=== PATIENT | male | born 1955 | race African-American/Black ===

== ENCOUNTER 2019-02-27 10:48 | Inpatient (IN) | payer OTHER ==
[2019-02-27 12:03] VITALS: BMI 19.8
--- NOTE | 2019-02-27 13:13 | HP ---
COWS - Scale Resting Pulse: 2= [place] 101-120 Sweatin= Chills/Flushing (chills) Restless Observation: 1= Difficult to Sit Still Pupil Size: 0= Normal to Room Light (miosis) Bone or Joint Aches: 1= Mild Discomfort Runny Nose/ Eye Tearin= Runny Nose/Eyes GI Upset > 30mins: 3= Vomiting/Diarrhea (more nausea & vomiting, some diarrhea) Tremor Observation: 2= Slight Tremor Visible Yawning Observation: 0= None Anxiety or Irritability: 1=Feels Anxious/Irritable Goose Flesh Skin: 3=Piloerection COWS Score: 16 CIWA Score - Admission Criteria OASAS Guidelines: Admission for Medically Managed Detox: Requires at least one of the followin. CIWA greater than 12 2. Seizures within the past 24 hours 3. Delirium tremens within the past 24 hours 4. Hallucinations within the past 24 hours 5. Acute intervention needed for co occurring medical disorder 6. Acute intervention needed for co occurring psychiatric disorder 7. Severe withdrawal that cannot be handled at a lower level of care (continued vomiting, continued diarrhea, abnormal vital signs) requiring intravenous medication and/or fluids 8. 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: Yes: Peripheral Neuropathy Cardiovascular: Yes: HTN Hepatobiliary: Yes: Hepatitis C - Past Surgical History Past Surgical History: Yes: Colonoscopy, Upper Endoscopy - Smoking History Smoking history: Current every day smoker Have you smoked in the past 12 months: Yes Aproximately how many cigarettes per day: 6 - Alcohol/Substance Use Hx Alcohol Use: No History of Substance Use: reports: Cocaine, Heroin, Marijuana - Social History Usual Living Arrangement: Yes: Alone Admission [facility] Chief Complaint: heroin withdrawal Allergies/Adverse Reactions: Allergies Allergy/AdvReac Type Severity Reaction Status Date / Time No Known Allergies Allergy Verified 02/27/19 11:51 History of Present Illness: 63 y.o. M hepatitic C (being treated currently- on zepetir- started treatment early january by Dr. Fried at [facility]) HTN, peripheral neuropathy. Presenting for detox from heroin. Wants to get clean. Would like to consider rehab or outpatient program. Pt is very hypertensive today, unsure if he took his medications yesterday or today. At baseline patient ambulates with a walker d/t RLE pain with ambulation. Heroin: -Overdosed on heroin this morning- thinks it was cut with fentanyl since he took the same amount he normally does (1 bag). Was found by his neighbor, was brought to [facility]. S/p narcan administration by EMS. -Uses 3-4x per week. Uses 1 bag ~$10. Has overdosed in the past, this is the 3rd overdose within 30 days. Sniffs, used to inject in the s. Started using heroin 1968. Longest sober period 3 years while incarcerated([id number]). Marijuana: Uses every now and then. Last used a couple of days ago. Cocaine: Uses seldomly. Snorts. Used to inject many years ago. Cigarettes: Daily, 5-7 cigarettes every day for the past 50 years. PSH: None Social hx: apartment, lives alone. 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 All: none Meds: zepetir, amlodipine, asa 81mg, hydralazine, nifedipine Patient left his hep C medications at home we do not have this medication available at this facility. Patient is aware of the risks of not taking this medication while in detox. He has an appointment with his tram operator on Tuesday. Exam Limitations: No Limitations - Ebola screening Have you traveled outside of the country in the last 21 days: No Have you had contact with anyone from an Ebola affected area: No Do you have a fever: No - Review of Systems Constitutional: Chills, Night Sweats EENT: reports: No Symptoms Reported Respiratory: reports: No Symptoms reported Cardiac: reports: No Symptoms Reported GI: reports: Nausea, Vomiting, Abdominal cramping : reports: No Symptoms Reported Musculoskeletal: reports: No Symptoms Reported Integumentary: reports: Sweating Neuro: reports: Paresthesia (Right lower extremity, chronic) Endocrine: reports: No Symptoms Reported Hematology: reports: No Symptoms Reported Psychiatric: reports: Mood/Affect Appropiate, Orientated x3 Patient History - Smoking Cessation Smoking history: Current every day smoker Have you smoked in the past 12 months: Yes Aproximately how many cigarettes per day: 6 Initiated information on smoking cessation: Yes 'Breaking Loose' booklet given: 02/27/19 - Substances abused Heroin Substance route: Inhalation Frequency: 3-6 times per week Amount used: 1 bag Age of first use: 14 Date of last use: 02/27/19 Admission Physical Exam [facility] - Vital Signs Vital Signs: Vital Signs - 24 hr 02/27/19 12:00 Temperature 96 F L Pulse Rate 109 H Respiratory 18 Rate Blood Pressure 213/95 H - Physical General Appearance: Yes: Mild Distress, Tremorous, Sweating, Anxious HEENTM: Yes: Hearing grossly Normal, Normocephalic, Pharynx Normal, Other ( miosis) Respiratory: Yes: Lungs Clear, Normal Breath Sounds Neck: Yes: No masses,lesions,Nodules, Supple Cardiology: Yes: Regular Rhythm, Regular Rate, S1, S2 Abdominal: Yes: Normal Bowel Sounds, Non Tender, Soft Back: Yes: Within Normal Limits Musculoskeletal: Yes: Back pain (chronic) Extremities: Yes: Normal Inspection, Tremors 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 NML intact, Fully Oriented, Alert, Normal Mood/ Affect Integumentary: Yes: Within Normal Limits Lymphatic: Yes: Within Normal Limits - Diagnostic (1) Heroin abuse Current Visit: Yes Status: Acute Cleared for Admission [facility] - Detox or Rehab [facility] Level of Care: Medically Supervised Detox Regimen/Protocol: Methadone Breathalyzer - Breathalyzer Breathalyzer: 0 Urine Drug Screen - Test Device Lot number: [id number] Expiration date: 09/29/20 - Control Is test valid?: Yes - Results Drug screen NEGATIVE: No Urine drug screen results: THC-Marijuana, FEN-Fentanyl, MOP-Opiates Inpatient Rehab Admission - Rehab Decision to Admit Inpatient rehab admission?: No
--- NOTE | 2019-02-27 13:43 | PN ---
"Teaching Attending Note Name of Resident: Juli Gould ATTENDING PHYSICIAN STATEMENT I saw and evaluated the patient. I reviewed the resident's note and discussed the case with the resident. I agree with the resident's findings and plan as documented. SUBJECTIVE: pt here requesting detox from opiate use , transferred from [facility] after OD today , was given Narcan by EMS , reports 1 bag 3-4 x /week via inhalation , OD x 3 in the last 30 days. Denies IVDU since 1969's , longest sobriety [id number] while incarcerated. cannabis : occasional use cocaine : occasional use tobacco : 5-7 cigs/day x 50 yrs PMHX : HTN . At baseline patient ambulates with a walker d/t RLE pain with ambulation. OBJECTIVE: thin / cachectic , ambulating w/ walker , anxious , agitated cv : tachycardia UE : tremors Vital Signs - 24 hr 02/27/19 12:00 Temperature 96 F L Pulse Rate 109 H Respiratory 18 Rate Blood Pressure 213/95 H Search Terms: joanne murrayberry, 1955Search Date: 02/27/2019 01:42:24 PM This report was requested by: Seble Howe | Reference #: [id number] There are no results for the search terms that you entered. ASSESSMENT AND PLAN: Opioid use disorder - Methadone detox nicotine dependence - smoking cessation counseling HTN - pt reports he did not take BP meds today ."
[2019-02-27] MEDS ORDERED: BISMUTH SUBSALICYLATE 262 MG/15 ML BTL PO PRN (14:04)
[2019-02-27] MEDS ORDERED: MAGNESIUM HYDROX 2400MG/30ML ORAL SUSPENSION 30 ML CUP PO PRN (14:04)
[2019-02-27] MEDS ORDERED: IBUPROFEN 400 MG TABLET (FP) PO PRN (14:04)
[2019-02-27] MEDS ORDERED: METHOCARBAMOL 500 MG TABLET PO PRN (14:04)
[2019-02-27] MEDS ORDERED: METHADONE HCL 10 MG TABLET (FOR DETOX USE ONLY) PO ONE (14:04)
[2019-02-27] MEDS ORDERED: ACETAMINOPHEN 325 MG TABLET (FP) PO PRN ×2 (14:04)
[2019-02-27] MEDS ORDERED: hydrOXYzine PAMOATE 25 MG CAPSULE (FP) PO PRN (14:04)
[2019-02-27] MEDS ORDERED: cloNIDine HCL 0.1 MG TABLET PO PRN (14:04)
[2019-02-27] MEDS ORDERED: MAG HYDROX/AL HYDROX/SIMETH 30 ML UNIT-DOSE CUP PO PRN (14:04)
[2019-02-27] MEDS ORDERED: MAGNESIUM CITRATE 300 ML BOTTLE PO PRN (14:04)
[2019-02-27] MEDS ORDERED: MENTHOL/PHENOL 1 EACH UD MM PRN (14:04)
[2019-02-27] MEDS ORDERED: MELATONIN 5 MG TABLETS PO PRN (14:04)
[2019-02-27] MEDS ORDERED: METHADONE HCL 5 MG TABLET (FOR DETOX USE ONLY) PO ONE (15:25)
[2019-02-27] MEDS: amLODIPine BESYLATE 10 MG TABLET (FP) PO SCH (19:03)
[2019-02-27] MEDS: ASPIRIN 81 MG CHEWABLE TABLETS PO SCH (19:03)
[2019-02-27] MEDS: THIAMINE HCL 100 MG TABLET (FP) PO SCH (22:24)
[2019-02-28] MEDS ORDERED: METHADONE HCL 5 MG TABLET (FOR DETOX USE ONLY) PO ONE (10:00)
[2019-02-28] MEDS ORDERED: METHADONE HCL 10 MG TABLET (FOR DETOX USE ONLY) PO ONE (10:00)
[2019-02-28 10:08] LABS: HEMATOCRIT 26.4 % (35.4-49); MCH 31.4 pg (25.7-33.7); MCHC 34.1 g/dl (32.0-35.9); PLATELET COUNT 210 K/MM3 (134-434); RBC 2.87 M/mm3 (4.00-5.60); RDW 16.1 % (11.9-15.9); WHITE BLOOD COUNT 6.7 K/mm3 (4.0-10.0)
--- NOTE | 2019-02-28 10:17 | PN ---
[facility] COWS - Scale Resting Pulse: 1= [place] 81-100 Sweatin= No chills or Flushing Restless Observation: 1= Difficult to Sit Still Pupil Size: 1= Pupils >than Normal Bone or Joint Aches: 1= Mild Discomfort Runny Nose/ Eye Tearin= Nasal Congestion GI Upset > 30mins: 1= Stomach Cramp Tremor Observation of Outstretched Hands: 1= Tremor [place], Not Seen Yawning Observation: 1= 1-2x During Session Anxiety or Irritability: 2=Irritable/Anxious Goose Flesh Skin: 0=Smooth Skin COWS Score: 10 BHS Progress Note (SOAP) Subjective: alert,irritable,anxious,interrupted sleep,pain in the body and back Objective: 02/28/19 10:15 Vital Signs Temperature 97.6 F 02/28/19 09:14 Pulse Rate 88 02/28/19 09:14 Respiratory Rate 18 02/28/19 09:14 Blood Pressure 148/80 02/28/19 09:14 O2 Sat by Pulse Oximetry (%) 02/28/19 10:15 labs pending Assessment: 02/28/19 10:15 withdrawal symptom,continue detox methadone regimen
[2019-02-28 10:32] LABS: ALBUMIN 2.4 g/dl (3.4-5.0); BILIRUBIN,TOTAL 0.3 mg/dL (0.2-1); BLOOD UREA NITROGEN 30.7 mg/dL (7-18); CALCIUM 7.7 mg/dL (8.5-10.1); CREATININE 3.5 mg/dL (0.55-1.3); POTASSIUM 3.1 mmol/L (3.5-5.1); TOT PROT 5.6 g/dl (6.4-8.2)
[2019-02-28] MEDS: amLODIPine BESYLATE 10 MG TABLET (FP) PO SCH (10:59)
[2019-02-28] MEDS: PRENATAL VITAMINS W/ FOLIC ACID TABLET (FP) PO SCH (10:59)
[2019-02-28] MEDS: ASPIRIN 81 MG CHEWABLE TABLETS PO SCH (10:59)
--- NOTE | 2019-02-28 12:26 | PN ---
[facility] Progress Note Note: Laboratory Last Values WBC 6.7 K/mm3 (4.0-10.0) 02/28/19 08:30 RBC 2.87 M/mm3 (4.00-5.60) L 02/28/19 08:30 Hgb 9.0 GM/dL (11.7-16.9) L 02/28/19 08:30 Hct 26.4 % (35.4-49) L 02/28/19 08:30 MCV 92.0 fl (80-96) 02/28/19 08:30 MCH 31.4 pg (25.7-33.7) 02/28/19 08:30 MCHC 34.1 g/dl (32.0-35.9) 02/28/19 08:30 RDW 16.1 % (11.9-15.9) H 02/28/19 08:30 Plt Count 210 K/MM3 (134-434) 02/28/19 08:30 MPV 8.0 fl (7.5-11.1) 02/28/19 08:30 Sodium 133 mmol/L (136-145) L 02/28/19 08:30 Potassium 3.1 mmol/L (3.5-5.1) L 02/28/19 08:30 Chloride 98 mmol/L (98-107) 02/28/19 08:30 Carbon Dioxide 27 mmol/L (21-32) 02/28/19 08:30 Anion Gap 8 MMOL/L (8-16) 02/28/19 08:30 BUN 30.7 mg/dL (7-18) H 02/28/19 08:30 Creatinine 3.5 mg/dL (0.55-1.3) H 02/28/19 08:30 Est GFR (CKD-EPI)AfAm 20.04 02/28/19 08:30 Est GFR (CKD-EPI)NonAf 17.29 02/28/19 08:30 Random Glucose 122 mg/dL (74-106) H 02/28/19 08:30 Calcium 7.7 mg/dL (8.5-10.1) L 02/28/19 08:30 Total Bilirubin 0.3 mg/dL (0.2-1) 02/28/19 08:30 AST 26 U/L (15-37) 02/28/19 08:30 ALT 23 U/L (13-61) 02/28/19 08:30 Alkaline Phosphatase 90 U/L (45-117) 02/28/19 08:30 Total Protein 5.6 g/dl (6.4-8.2) L 02/28/19 08:30 Albumin 2.4 g/dl (3.4-5.0) L 02/28/19 08:30 RPR Titer Nonreactive (NONREACTIVE) 02/28/19 08:30 anemia ferrous sulfate 325 mgs po bid k is 3.1 will give d dur 20 meq po now then bid for 3 days bun 30.7 dehydration or renal insufficiency ensure plus 120 mls po bid repeat cbc ,cmp in am encourage oral fluid
[2019-02-28] MEDS: FERROUS SO4 325 MG TABLET (FP) PO SCH ×2 (13:00→22:48)
[2019-02-28] MEDS: POTASSIUM CHLORIDE TABS 20 MEQ TABLET.ER (FP) PO SCH ×2 (15:00→22:48)
[2019-02-28] MEDS: THIAMINE HCL 100 MG TABLET (FP) PO SCH (22:48)
[2019-03-01] MEDS ORDERED: METHADONE HCL 5 MG TABLET (FOR DETOX USE ONLY) PO ONE (10:00)
[2019-03-01] MEDS ORDERED: METHADONE HCL 10 MG TABLET (FOR DETOX USE ONLY) PO ONE (10:00)
[2019-03-01 10:08] LABS: HEMATOCRIT 28.1 % (35.4-49); HEMOGLOBIN 9.5 GM/dL (11.7-16.9); MCH 31.1 pg (25.7-33.7); MCHC 33.7 g/dl (32.0-35.9); MEAN CELL VOLUME 92.2 fl (80-96); MEAN PLT VOLUME 8.4 fl (7.5-11.1); PLATELET COUNT 229 K/MM3 (134-434); RBC 3.05 M/mm3 (4.00-5.60); RDW 16.3 % (11.9-15.9); WHITE BLOOD COUNT 7.7 K/mm3 (4.0-10.0)
[2019-03-01] MEDS: ASPIRIN 81 MG CHEWABLE TABLETS PO SCH (10:15)
[2019-03-01] MEDS: POTASSIUM CHLORIDE TABS 20 MEQ TABLET.ER (FP) PO SCH ×2 (10:25→22:15)
[2019-03-01] MEDS: PRENATAL VITAMINS W/ FOLIC ACID TABLET (FP) PO SCH (10:25)
[2019-03-01] MEDS: amLODIPine BESYLATE 10 MG TABLET (FP) PO SCH (10:26)
[2019-03-01] MEDS: FERROUS SO4 325 MG TABLET (FP) PO SCH ×2 (10:26→22:15)
--- NOTE | 2019-03-01 10:37 | PN ---
[facility] COWS - Scale Resting Pulse: 2= [place] 101-120 Sweatin= No chills or Flushing Restless Observation: 1= Difficult to Sit Still Pupil Size: 1= Pupils >than Normal Bone or Joint Aches: 1= Mild Discomfort Runny Nose/ Eye Tearin= Nasal Congestion GI Upset > 30mins: 1= Stomach Cramp Tremor Observation of Outstretched Hands: 1= Tremor [place], Not Seen Yawning Observation: 1= 1-2x During Session Anxiety or Irritability: 2=Irritable/Anxious Goose Flesh Skin: 0=Smooth Skin COWS Score: 11 S Progress Note (SOAP) Subjective: alert,irritable,anxious,interrupted sleep,pain in the body,feel weak Objective: 03/01/19 10:34 Vital Signs Temperature 98.2 F 03/01/19 09:22 Pulse Rate 101 H 03/01/19 09:22 Respiratory Rate 16 03/01/19 09:22 Blood Pressure 151/84 03/01/19 09:22 O2 Sat by Pulse Oximetry (%) Laboratory Results - last 24 hr 02/28/19 03/01/19 08:30 08:00 WBC 7.7 RBC 3.05 L Hgb 9.5 L Hct 28.1 L MCV 92.2 MCH 31.1 MCHC 33.7 RDW 16.3 H Plt Count 229 MPV 8.4 RPR Titer Nonreactive repeat cmp pending Assessment: withdrawal symptom Plan: continue detox methadone regimen,cmp pengjay jay,dischare in am,follow up with own pmd and government guard for renal infficiency upon discharge
[2019-03-01 10:44] LABS: ALBUMIN 2.3 g/dl (3.4-5.0); BILIRUBIN,TOTAL 0.4 mg/dL (0.2-1); BLOOD UREA NITROGEN 31.6 mg/dL (7-18); CALCIUM 8.3 mg/dL (8.5-10.1); CREATININE 3.2 mg/dL (0.55-1.3); POTASSIUM 3.5 mmol/L (3.5-5.1); TOT PROT 5.6 g/dl (6.4-8.2)
[2019-03-01] MEDS: THIAMINE HCL 100 MG TABLET (FP) PO SCH (22:15)
[2019-03-02] MEDS ORDERED: METHADONE HCL 5 MG TABLET (FOR DETOX USE ONLY) PO ONE (06:00)
[2019-03-02 06:12] VITALS: BP 180/89; PULSE 104; TEMP 97.5
--- NOTE | 2019-03-02 09:18 | DS ---
[facility] Detox Discharge Summary Admission Date: 02/27/19 Discharge Date: 03/02/19 - History Present History: Opioid Dependence - Physical Exam Results Vital Signs: Vital Signs Temperature 97.5 F L 03/02/19 06:00 Pulse Rate 104 H 03/02/19 06:05 Respiratory Rate 18 03/02/19 06:05 Blood Pressure 180/89 H 03/02/19 06:05 O2 Sat by Pulse Oximetry (%) Pertinent Admission Physical Exam Findings: pt arrived in withdrawals Vital Signs Temperature 97.5 F L 03/02/19 06:00 Pulse Rate 104 H 03/02/19 06:05 Respiratory Rate 18 03/02/19 06:05 Blood Pressure 180/89 H 03/02/19 06:05 O2 Sat by Pulse Oximetry (%) Laboratory Tests 02/28/19 02/28/19 02/28/19 08:30 08:30 08:30 WBC 6.7 RBC 2.87 L Hgb 9.0 L Hct 26.4 L MCV 92.0 MCH 31.4 MCHC 34.1 RDW 16.1 H Plt Count 210 MPV 8.0 Sodium 133 L Potassium 3.1 L Chloride 98 Carbon Dioxide 27 Anion Gap 8 BUN 30.7 H Creatinine 3.5 H Est GFR (CKD-EPI)AfAm 20.04 Est GFR (CKD-EPI)NonAf 17.29 Random Glucose 122 H Calcium 7.7 L Total Bilirubin 0.3 AST 26 ALT 23 Alkaline Phosphatase 90 Total Protein 5.6 L Albumin 2.4 L RPR Titer Nonreactive 03/01/19 03/01/19 08:00 08:00 WBC 7.7 RBC 3.05 L Hgb 9.5 L Hct 28.1 L MCV 92.2 MCH 31.1 MCHC 33.7 RDW 16.3 H Plt Count 229 MPV 8.4 Sodium 138 Potassium 3.5 Chloride 102 Carbon Dioxide 27 Anion Gap 8 BUN 31.6 H Creatinine 3.2 H Est GFR (CKD-EPI)AfAm 22.33 Est GFR (CKD-EPI)NonAf 19.27 Random Glucose 82 Calcium 8.3 L Total Bilirubin 0.4 AST 24 ALT 24 Alkaline Phosphatase 89 Total Protein 5.6 L Albumin 2.3 L RPR Titer today pt is aaox3 ambulating no acute distress no s/s of withdrawals - Treatment Hospital Course: Detox Protocol Followed, Detoxed Safely, Responded well, Discharged Condition Good, Rehab Referral Accepted Patient has Accepted a Rehab Referral to: pt declined rehab; referral provided - Medication Discharge Medications: Ambulatory Orders Amlodipine Besylate [Norvasc -] 10 mg PO DAILY 02/27/19 Aspirin 81 mg PO DAILY 02/27/19 Elbasvir/Grazoprevir [Zepatier 50-100 mg Tablet] 1 each PO DAILY 02/27/19 - Diagnosis (1) Opioid dependence with withdrawal Current Visit: Yes Status: Chronic - AMA Did Patient Leave Against Medical Advice: No
[2019-03-02] MEDS: FERROUS SO4 325 MG TABLET (FP) PO SCH (09:25)
[2019-03-02] MEDS: ASPIRIN 81 MG CHEWABLE TABLETS PO SCH (09:25)
[2019-03-02] MEDS: amLODIPine BESYLATE 10 MG TABLET (FP) PO SCH (09:26)
[2019-03-02] MEDS: POTASSIUM CHLORIDE TABS 20 MEQ TABLET.ER (FP) PO SCH (09:26)
[2019-03-02] MEDS: PRENATAL VITAMINS W/ FOLIC ACID TABLET (FP) PO SCH (09:26)
== END 2019-03-02 09:22 | disposition home or self-care (01) | DRG 897 ==
LOC: YASAS 10:48 → Y6N 14:50
PROVIDERS: ADMIT Allergy & Immunology; ATTEND Allergy & Immunology
PROC: HZ2ZZZZ Detoxification Services for Substance Abuse Treatment (ICD-10-PCS; principal; 2019-02-27)
DX: F11.23 Opioid dependence with withdrawal (principal); F12.10 Cannabis abuse, uncomplicated; F17.210 Nicotine dependence, cigarettes, uncomplicated; E87.6 Hypokalemia; I10 Essential (primary) hypertension; G62.9 Polyneuropathy, unspecified; B18.2 Chronic viral hepatitis C; Z79.82 Long term (current) use of aspirin; M79.604 Pain in right leg; Z99.89 Dependence on other enabling machines and devices
CPT/HCPCS: 36415; 71045-TC-FY; 80053; 85027; 86593; J0735